=== PATIENT | female | born 1945 | race Caucasian/White ===

== ENCOUNTER 2017-07-13 13:00 | Inpatient (IN) ==
[2017-07-13 16:03] LABS: Appearance,Urine HAZY; Bacteria,Urine 0 /hpf (0); Bilirubin,Urine NEG (NEG); Color,Urine YELLOW; Glucose,Urine (UA) NEGATIVE (NEG); Leukocyte Esterase,Urine 500 /uL (NEG); Mucus,Urine FEW /hpf (0); Nitrate,Urine NEG (NEG); Protein,Urine NEG (NEG); Specific Gravity,Urine 1.026 (1.000-1.035); Urine Blood 0.03 mg/dL (<0.03); Urine RBC 11 /hpf (0-1); Urine Squamous Epithelial Cell 12 /hpf (0-4); Urine Transitional Epi Cells 4 /hpf (0-2); Urine WBC 82 /hpf (0-4); Urobilinogen,Urine NEG (NEG)
[2017-07-13 17:04] LABS: ALT/SGPT 21 U/l (0-40); Albumin 4.3 gm/dL (3.2-5.2); Albumin/Globulin Ratio 1.5 (1.0-2.3); Alkaline Phosphatase 27 U/L (39-117); Blood Urea Nitrogen 18 mg/dl (8-23)
[2017-07-13 17:25] LABS: Basophils # (Auto) 0 K/mcL (0.0-0.3); Basophils % (Auto) 0.2 % (0.0-2.0); Eosinophils # (Auto) 0 K/mcL (0.0-0.7); Eosinophils % (Auto) 0.5 % (0.0-7.0); Granulocytes % (Auto) 71.3 % (38.0-78.0); Lymphocytes # (Auto) 1.3 K/mcL (1.5-4.8); Lymphocytes % (Auto) 19.4 % (15.5-49.0); Mean Cell Volume 104.3 fL (80.0-100.0); Mean Corpuscular HGB Conc 33.7 g/dL (31.0-36.0); Mean Corpuscular Hemoglobin 35.2 pg (26.0-34.0); Monocytes # (Auto) 0.6 K/mcL (0.1-0.9); Monocytes % (Auto) 8.6 % (1.0-12.0); Platelet Count 282 K/mcL (140-440); RBC 3.74 M/mcL (4.00-5.20); Red Cell Distribution Width 14.4 % (11.5-14.5)
[2017-07-14] MEDS ORDERED: 0.9 % SODIUM CHLORIDE 250 ML IV SCH (21:15)
[2017-07-15] MEDS ORDERED: SCOPOLAMINE 1 PATCH PATCH TOPICAL PRN (05:00)
[2017-07-15] MEDS ORDERED: IPRATROPIUM/ALBUTEROL 3 ML AMPUL.NEB NEB PRN ×2 (05:00→13:25)
[2017-07-15] MEDS ORDERED: VANCOMYCIN 1,000 MG in 0.9 % SODIUM CHLORIDE 250 ML IV ONE (09:31)
[2017-07-15] MEDS ORDERED: SUCCINYLCHOLINE 20 MG/ML ML IV ONE (10:20)
[2017-07-15] MEDS ORDERED: MIDAZOLAM 5 MG/5 ML VIAL IV ONE (10:20)
[2017-07-15] MEDS ORDERED: DEXAMETHASONE 10 MG/ML VIAL IV ONE (10:20)
[2017-07-15] MEDS ORDERED: ONDANSETRON 4 MG/2 ML VIAL IV ONE (10:20)
[2017-07-15] MEDS ORDERED: fentaNYL 250 MCG/5 ML VIAL IV ONE (10:20)
[2017-07-15] MEDS ORDERED: LIDOCAINE HCL/PF 100 MG/5 ML SYRINGE IV ONE (10:20)
[2017-07-15] MEDS ORDERED: PROPOFOL 200 MG/20 ML VIAL IV ONE (10:20)
[2017-07-15] MEDS ORDERED: GELATIN SPONGE,ABSORBABLE 1 GM POWDER TOPICAL ONE (12:49)
[2017-07-15] MEDS ORDERED: THROMBIN (BOVINE) 5,000 UNIT VIAL TOPICAL ONE (12:49)
[2017-07-15] MEDS ORDERED: GELATIN SPONGE,ABSORBABLE 1 EACH SPONGE TOPICAL ONE (12:49)
[2017-07-15] MEDS ORDERED: MEPERIDINE 25 MG/ML SYRINGE IV PRN (13:25)
[2017-07-15] MEDS ORDERED: NALOXONE HCL 0.4 MG/ML VIAL IV PRN (13:25)
[2017-07-15] MEDS ORDERED: diphenhydrAMINE 50 MG/ML VIAL IV PRN (13:25)
[2017-07-15] MEDS ORDERED: METHOCARBAMOL 1,000 MG/10 ML VIAL IV PRN (13:25)
[2017-07-15] MEDS ORDERED: PROMETHAZINE 25 MG/ML VIAL IV PRN (13:25)
[2017-07-15] MEDS ORDERED: ONDANSETRON 4 MG/2 ML VIAL IV PRN (13:25)
[2017-07-15] MEDS ORDERED: LACTATED RINGERS 250 ML IV PRN (13:25)
[2017-07-15] MEDS ORDERED: ACETAMINOPHEN 1,000 MG/100 ML BOTTLE IV ONE (13:25)
[2017-07-15] MEDS ORDERED: BENZOCAINE/MENTHOL 1 LOZENGE PO PRN ×2 (13:25→13:33)
[2017-07-15] MEDS ORDERED: FLUMAZENIL 0.1 MG/ML ML IV PRN (13:25)
[2017-07-15] MEDS ORDERED: LACTATED RINGERS 1,000 ML IV SCH (13:30)
--- NOTE | 2017-07-15 13:32 | Brief Operative Note ---
Date of procedure: 07/15/17 Pre-op diagnosis: stenosis w instability Post-op diagnosis: same Procedure: XLIF with PSIF L3/4 decompression L3-5 Grafts/Implants: Yes (nuvasive) Anesthesia: GETA Findings: stenosis instability Complications: none Surgeon: Reece Shipman Bag Maker: Aleyda Goyal Estimated blood loss (cc): 150 Specimens Removed/Pathology: none sent Condition: stable Disposition: PACU
[2017-07-15] MEDS ORDERED: HYDROmorphone PCA 30 MG/30 ML PCA.VIAL IV PRN (13:42)
[2017-07-15] MEDS: fentaNYL 100 MCG/2 ML VIAL IV PRN ×3 (14:12→14:40)
[2017-07-15] MEDS ORDERED: BUPIVACAINE 0.25% 50 ML VIAL IJ ONE (14:41)
[2017-07-15] MEDS ORDERED: GUM MASTIC/STORAX/MSAL/ALCOHOL 1 DOSE DROPERETTE TOPICAL ONE (14:41)
[2017-07-15] MEDS: LACTATED RINGERS 1,000 ML IV SCH (18:56)
[2017-07-15] MEDS: metFORMIN 500 MG TABLET PO SCH (18:57)
[2017-07-15] MEDS: ZOLPIDEM 5 MG TABLET PO SCH (23:57)
[2017-07-16] MEDS: LACTATED RINGERS 1,000 ML IV SCH ×3 (05:10→20:18)
[2017-07-16 08:01] LABS: Blood Urea Nitrogen 23 mg/dl (8-23)
[2017-07-16] MEDS: predniSONE 5 MG TABLET PO SCH (08:31)
[2017-07-16] MEDS: LOSARTAN 25 MG TABLET PO SCH (08:31)
[2017-07-16] MEDS: EZETIMIBE 10 MG TABLET PO SCH (08:31)
[2017-07-16] MEDS: metFORMIN 500 MG TABLET PO SCH ×3 (08:31→17:49)
--- NOTE | 2017-07-16 09:08 | Orthopedic Progress Note ---
Subjective Patient information: Note initiated : 07/16/17 at 9:06 am Service Date, if different from initiated Date: [] Patient: Cynthia Sanders 72 y/o F admitted on 07/15/17 for L3-4 XLIF with Posterior Decompression and Fusion,. Chief Complaint: [S/P L3-4 XLIF decompression and fusion] Patient is doing well and reports that her lower extremity symptoms have improved compared to pre-operatively. She denies any lower extremity paresthesias or weakness. Her pain is well-controlled at this point. Ambulation has been limited. Objective Vital signs: Vital Signs Temp Pulse Resp BP Pulse Ox 07/16/17 07:20 96 07/16/17 07:18 16 07/16/17 07:10 97.9 F 18 108/62 96 07/16/17 05:15 18 07/16/17 04:00 98.9 F 72 18 109/69 97 07/16/17 00:02 18 07/16/17 00:00 96 07/15/17 23:49 98.1 F 80 14 112/63 97 07/15/17 20:00 97.2 F 90 14 106/71 96 07/15/17 19:28 96 07/15/17 17:05 106/75 97 07/15/17 16:35 16 07/15/17 16:03 114/71 97 07/15/17 15:48 121/78 99 07/15/17 15:47 16 07/15/17 15:33 138/88 97 07/15/17 15:21 75 07/15/17 15:18 148/67 98 07/15/17 15:15 16 97 07/15/17 15:03 129/75 93 07/15/17 15:00 97 F 16 129/75 96 07/15/17 14:41 97.6 F 84 12 123/44 99 07/15/17 14:25 82 9 L 114/46 97 07/15/17 14:10 89 15 131/72 97 07/15/17 13:57 97.8 F 92 H 16 117/73 97 Intake and Output 07/15/17 07/16/17 07/16/17 21:59 05:59 13:59 Intake Total 100 / 100 1500 / 1500 Output Total 175 / 175 145 / 145 203 / 203 Balance -75 / -75 1355 / 1355 -203 / -203 Intake: IV 100 / 100 1000 / 1000 Lactated Ringers 1,000 ml @ 100 1000 / 1000 mls/hr IV .Q10H [facility] Rx#: [id number] Oral 500 / 500 Output: Drainage 50 / 50 20 / 20 3 / 3 BEVERLEY Drain 50 / 50 20 / 20 3 / 3 Void Amount 125 / 125 125 / 125 200 / 200 Other: # Voids 1 1 1 Weight 166 lb Intake & Output: Intake & Output 07/15/17 07/16/17 07/16/17 21:59 05:59 13:59 Intake Total 100 / 100 1500 / 1500 Output Total 175 / 175 145 / 145 203 / 203 Balance -75 / -75 1355 / 135 - Weight 166 lb Intake: IV 100 / 100 1000 / 1000 Lactated Ringers 1,000 ml @ 100 1000 / 1000 mls/hr IV .Q10H [facility] Rx#: [id number] Oral 500 / 500 Output: Drainage 50 / 50 20 / 20 3 / 3 BEVERLEY Drain 50 / 50 20 / 20 3 / 3 Void Amount 125 / 125 125 / 125 200 / 200 Other: # Voids 1 1 1 Incision: Yes clean and dry Incision clean and dry: Yes Dressing: Yes clean, Yes dry, Yes intact Weight bearing status: as tolerated Neurological exam IM: Yes alert, Yes motor sensory intact, Yes neurovascular intact Extremities exam IM: Yes full ROM, Yes Foot pink and warm, Yes neurovascular intact - Labs CBC & BMP: 07/16/17 04:43 07/16/17 04:43 Labs: Orthopedic Labs 07/13/17 13:52 PT 13.3 INR 1.0 07/16/17 07/13/17 04:43 13:52 Hgb 10.3 L 13.2 Hct 30.2 L 39.0 Assessment and Plan (1) S/P lumbar spinal fusion Ambulate with PT while wearing lumbar brace. D/c MARKETING COMMUNICATIONS SPECIALIST and treat pain with oral medications. Pull drain today. Possible discharge to home tomorrow am. Status: Acute
--- NOTE | 2017-07-16 09:28 | Discharge Summary ---
Providers - Providers Patient information: Note initiated : 07/16/17 at 9:25 am Service Date, if different from initiated Date: [] Patient: Cynthia Sanders 72 y/o F admitted on 07/15/17 for L3-4 XLIF with Posterior Decompression and Fusion,. Chief Complaint: [] Discharge date: 07/17/17 Attending physician: Reece Shipman Hospitalization Hospital course: Postoperatively, the patient was taken to the [facility] and provided routine pain management and maintained on prophylactic abx. She ambulated daily with PT while using her lumbar brace. At the time of discharge, her pain is well- controlled and she is tolerating all medication. She is discharged to follow-up with me in approximately 2 weeks. She will call with questions or concerns whatsoever. Discharge diagnosis: S/P L3-4 XLIF with post. instrumentation and decompression of L4-5 Reason for admission: The patient was admitted for operative treatment of lumbar stenosis. Procedures: L3-4 XLIF with posterior instrumentation and decompression of L4-5 Complications: None Exam - Exam Incision healing: Yes Incision draining: No Incision red: No Incision swollen: No Incision inflamed: No Clean and dry: Yes Weight bearing status: as tolerated Range of motion: Limited due to tenderness. Ortho Discharge - Spine - Patient Instructions Discharge Diet: Regular Diet Activity: weight bearing as tolerated Spine Protocol: Limit bending and stooping. No heavy lifting. Wear brace/collar at all times except when showering and sleeping. Dressing Care: May shower in 2 days Additional Dressing Instructions: May Shower 48 hours post-operative and replace with dry dressing after shower. Patient Education: Lumbar Spinal Fusion (DC) - Problem Maintenance (1) S/P lumbar spinal fusion Status: Acute - Follow Up Plan Follow Up Appointments: Reece Shipman MD [Physician] - 07/28/17 2:30 pm Disposition: Home, Self-Care Prognosis: Good Rehab Potential: Good I certify that the patient requires SNF services: No Overall status at discharge: patient is back to baseline Pending Studies Resuscitation Status Full Code Diet Regular Diet Start Tue 8 Dinner Ezetimibe (Zetia) 10 mg PO DAILY [facility] Last Admin: 07/16/17 08:31 Dose: 10 mg Hydromorphone HCl (Dilaudid Filler Blender) 30 mg IV UD PRN; Protocol PRN Reason: Pain Last Admin: 07/15/17 15:47 Dose: 30 mg Lactated Ringer's (Lactated Ringers) 1,000 mls @ 100 mls/hr IV .Q10H [facility] Last Admin: 07/16/17 05:10 Dose: 100 mls/hr Infusion: 07/16/17 04:56 Dose: 100 mls/hr Admin: 07/15/17 18:56 Dose: 100 mls/hr Losartan Potassium (Cozaar) 25 mg PO DAILY [facility] Last Admin: 07/16/17 08:31 Dose: 25 mg Metformin HCl (Glucophage) 500 mg PO TIDCC [facility] Last Admin: 07/16/17 08:31 Dose: 500 mg Admin: 07/15/17 18:57 Dose: 500 mg Tofacitinib Citrate [Xeljanz] 5 Mg Tablet 1 dose PO DAILY [facility] Last Admin: 07/16/17 08:31 Dose: Not Given [facility]) [facility] Last Admin: 07/16/17 08:31 Dose: 5 mg Zolpidem Tartrate (Ambien) [address] [facility] Last Admin: 07/15/17 23:57 Dose: 5 mg Shift Summary 07/16/17 04:51 Shift Summary by Hanh Boyle Addendum entered by Hanh Boyle R.N. 07/16/17 05:18: Patient only used 1.2 mg [employer]ATELL[employer] TELEVISION INSTALLER Dilaudid this shift. Original Note: Patient alert and oriented. IV tender on LFA. New IV put in RFA. IVF LR infusing well at 100 mls. Pain well controlled by SATELLITE TELEVISION INSTALLER Dilaudid. On continuous pulse oximeter. Desats to 85-89% on room air at start of shift. Hooked to O2 nasal cannula at 2l, sats 96-97%. Standby assisted to the bathroom with back brace on and cane. Dressing on lower back dry and intact. BEVERLEY dressing site dry and intact. Drained 30 mls serosanguinous output this shift. TEDs on bilateral legs. Granddaughter at bedside. Initialized on 07/16/17 04:51 - END OF NOTE
[2017-07-16] MEDS ORDERED: PNEUMOCOCCAL 23-VAL P-SAC VAC 0.5 ML VIAL IM ONE (10:00)
[2017-07-16] MEDS: HYDROmorphone 2 MG TABLET PO PRN ×2 (17:51→22:57)
[2017-07-16] MEDS: ZOLPIDEM 5 MG TABLET PO SCH (22:57)
[2017-07-17] MEDS: HYDROmorphone 2 MG TABLET PO PRN ×2 (02:54→09:14)
[2017-07-17] MEDS: LACTATED RINGERS 1,000 ML IV SCH (05:29)
--- NOTE | 2017-07-17 08:17 | Orthopedic Progress Note ---
Subjective Patient information: Note initiated : 07/17/17 at 8:15 am Service Date, if different from initiated Date: [] Patient: Cynthia Sanders 72 y/o F admitted on 07/15/17 for L3-4 XLIF with Posterior Decompression and Fusion,. Chief Complaint: [S/P L3-4 XLIF w/ post. instrumentation and decompression of L4 -5] Patient is doing well and her pain is well-controlled. She denies any lower extremity paresthesias/weakness. Objective Vital signs: Vital Signs Temp Pulse Resp BP Pulse Ox 07/17/17 08:00 96 07/17/17 06:37 97.9 F 20 109/55 96 07/17/17 04:00 96 07/17/17 03:02 97.6 F 92 H 18 106/49 96 07/17/17 01:45 95 07/17/17 00:30 93 07/17/17 00:00 97.7 F 103 H 20 122/72 96 07/16/17 22:34 96 07/16/17 20:00 97.1 F 90 18 122/64 97 07/16/17 16:00 96 07/16/17 15:28 98.6 F 18 120/64 96 07/16/17 12:00 95 07/16/17 11:30 97.1 F 18 116/60 95 Intake and Output 07/16/17 07/17/17 07/17/17 21:59 05:59 13:59 Intake Total 1050 / 1050 1250 / 1250 Output Total 350 / 350 100 / 100 550 / 550 Balance 700 / 700 1150 / 1150 -550 / -550 Intake: IV 1000 / 1000 Lactated Ringers 1,000 ml @ 100 1000 / 1000 mls/hr IV .Q10H [facility] Rx#: [id number] Oral 1050 / 1050 250 / 250 Output: Void Amount 350 / 350 100 / 100 550 / 550 Other: Meal Dinner Percent of Meal Consumed 100% Feeding Ability Independent # Voids 1 1 1 Weight 170 lb Intake & Output: Intake & Output 07/16/17 07/17/17 07/17/17 21:59 05:59 13:59 Intake Total 1050 / 1050 1250 / 1250 Output Total 350 / 350 100 / 100 550 / 550 Balance 700 / 700 1150 / 1150 -550 / -550 Weight 170 lb Intake: IV 1000 / 1000 Lactated Ringers 1,000 ml @ 100 1000 / 1000 mls/hr IV .Q10H [facility] Rx#: [id number] Oral 1050 / 1050 250 / 250 Output: Void Amount 350 / 350 100 / 100 550 / 550 Other: Meal Dinner Percent of Meal Consumed 100% Feeding Ability Independent # Voids 1 1 1 Incision: Yes clean and dry Incision clean and dry: Yes Dressing: Yes clean, Yes dry, Yes intact Weight bearing status: as tolerated Range of motion: Limited due to tenderness Neurological exam IM: Yes alert, Yes normal gait, Yes motor sensory intact, Yes neurovascular intact Extremities exam IM: Yes neurovascular intact - Labs CBC & BMP: 07/17/17 04:37 07/16/17 04:43 Labs: Orthopedic Labs 07/13/17 13:52 PT 13.3 INR 1.0 07/17/17 07/16/17 07/13/17 04:37 04:43 13:52 Hgb 10.0 L 10.3 L 13.2 Hct 29.4 L 30.2 L 39.0 Assessment and Plan (1) S/P lumbar spinal fusion Ambulate with PT while wearing lumbar brace. Discharge to home today. Post-op instructions were verbalized including limiting lifting, bending and twisting. She will wear her brace when ambulating. May remove dressing prior to showering and replace with dry dressing after showers. Status: Acute
[2017-07-17] MEDS: LOSARTAN 25 MG TABLET PO SCH (09:04)
[2017-07-17] MEDS: predniSONE 5 MG TABLET PO SCH (09:04)
[2017-07-17] MEDS: metFORMIN 500 MG TABLET PO SCH (09:04)
[2017-07-17] MEDS: EZETIMIBE 10 MG TABLET PO SCH (09:04)
--- NOTE | 2017-07-19 08:35 | Operative Note ---
DATE OF OPERATION: 07/15/2017 PREOPERATIVE DIAGNOSIS: Lumbar stenosis L3-L5 with instability L3-L4. POSTOPERATIVE DIAGNOSIS: Lumbar stenosis L3-L5 with instability L3-L4. OPERATION PROPOSED: 1. Anterior interbody fusion via lateral retroperitoneal approach L3-L4 and application of prosthetic device interbody space at L3-L4, posterior nonsegmental instrumentation using a NuVasive medial cortical screw construct. 2. Posterior/posterolateral fusion L3-L4. 3. Decompression at L3-L5. OPERATION PERFORMED: 1. Anterior interbody fusion via lateral retroperitoneal approach L3-L4 and application of prosthetic device interbody space at L3-L4, posterior nonsegmental instrumentation using a NuVasive medial cortical screw construct. 2. Posterior/posterolateral fusion L3-L4. 3. Decompression at L3-L5. OPERATING SURGEON: Reece Shipman MD TAKE UP OPERATOR: Aleyda Goyal PA-C INDICATIONS: This is an elderly lady who has stenosis at L3-L4 and L4-L5 and instability at L3-L4. She has failed conservative measures. We have elected to proceed with XLIF and a posterior decompression and fusion. OPERATION IN DETAIL: Informed consent was obtained. She was taken to operative room and provided with appropriate anesthetic and prophylactic antibiotics. She was carefully positioned. Her left flank was prepped sterilely. A retroperitoneal approach was performed. I then advanced a trocar through the psoas muscle using appropriate EMG guidance. I sequentially dilated and placed a self-retaining retractor. I arrived on the disc space. I opened the retractor and then probed along the retractor to ensure there was no nerve root in the area of retraction. I placed a posterior herlinda stabilizing the retractor. I incised the annulus. I then brought a Ya across the disc space along the upper and lower end plates of the L3-L4 disc. I then removed the disc material. I extensively curetted the disc space and debrided down to subchondral bleeding bone. I placed distractors in the disc space. I then filled a NuVasive cage with morcellized bone graft. It was impacted into the site prepared for it. The patient then turned to the prone position. A midline incision was made. I dissected down exposing the spinous process and lamina at L3-L5. I dissected the lateral border of the facet joint. A self-retaining retractor was applied. I then performed the decompression. I removed the interspinous ligament between L3-L4, inferior one-half of the spinous process and lamina of L3 and the leading edge of L4 were resected. I then decompressed L4-L5 via bilateral laminotomies but saved some midline structures for stability. I extended the decompression into the lateral recess where I debrided the hypertrophied medial border of the facet joint. At the end of the decompression, the central canal, lateral recess, and neural foramen were very adequately decompressed. I then placed my medial cortical screws. This was done by advancing a drill cephalad and laterally across the pedicle L3 and L4. This was done under fluoroscopic guidance as well as using CMG monitoring. I tapped and then placed an appropriate screw at both levels. I then performed the posterior and posterolateral fusion. I used the high speed bur to decorticate the posterolateral aspect of the spine. I packed morcellized graft into and against the decorticated posterolateral aspect of the spine to allow perfusion. The procedure was completed by compressing across the interbody graft. I tightened and torqued the ivon into the top-loading screws. I had irrigated thoroughly with pulsatile lavage and IrriSept prior to placing bone graft. I closed over a deep drain with 0 Vicryl in interrupted fashion, 2-0 Vicryl inverted deep dermal, and a running subcuticular. The procedure was tolerated well. No complications. Estimated blood loss is 200 mL. GDD:keith Job ID: [id number] Doc ID: [id number] Reece Shipman MD
== END 2017-07-17 10:55 | disposition home or self-care (01) | DRG 460 ==
LOC: MEDSUR 07-15 07:55
PROVIDERS: ADMIT Orthopaedic Surgery Orthopaedic Surgery of the Spine; ATTEND Orthopaedic Surgery Orthopaedic Surgery of the Spine